=== PATIENT | female | born 1965 | race Asian ===

== ENCOUNTER 2018-09-06 21:46 | Emergency (ER) | payer OTHER ==
[2018-09-07 01:08] LABS: URINE PH (Dip) POC 5.5 (5.0-8.5)
[2018-09-07 01:08] LABS: URINE BLOOD (Dip) POC 1+ (NEGATIVE); URINE KETONES (Dip) POC Trace (NEGATIVE); URINE LEUKOCYTE EST (Dip) POC 3+ (NEGATIVE); URINE NITRITE (Dip) POC Positive (NEGATIVE); URINE TOTAL PROTEIN POC 2+ (NEGATIVE)
[2018-09-07] MEDS: IBUPROFEN 200 MG TAB PO (01:28)
[2018-09-07] MEDS: CIPROFLOXACIN 500 MG TAB PO (01:28)
[2018-09-07] MEDS: DIPHENHYDRAMINE 50 MG CAP PO (02:05)
== END 2018-09-07 02:31 | disposition home or self-care (01) ==
LOC: E/R 21:46 → FTE 09-07 02:31
DX: N39.0 Urinary tract infection, site not specified (principal)
CPT/HCPCS: 81003; 99283